=== PATIENT | female | born 1985 | race Caucasian/White ===

== ENCOUNTER 2019-07-20 17:39 | Emergency (ER) | payer OTHER ==
[2019-07-20 18:03] VITALS: BP 120/79; PULSE 71; TEMP 98.1; BMI 23.3
--- NOTE | 2019-07-20 18:03 | PDOC ---
Rapid Medical Evaluation Time Seen by Provider: 07/20/19 18:00 Medical Evaluation: Allergies Allergy/AdvReac Type Severity Reaction Status Date / Time No Known Allergies Allergy Verified 08/31/14 09:24 07/20/19 18:01 HPI: Lower back pain x 3 months but worse today PE:No gross deficits ORDERS: Nothing Discharge Disposition - Diagnosis Lower back pain - Referrals - Patient Instructions - Post Discharge Activity
[2019-07-20] MEDS ORDERED: KETOROLAC TROMETHAMINE 30 MG/1 ML VIAL IM ONE (18:30)
--- NOTE | 2019-07-20 18:30 | PDOC ---
History of Present Illness - General Chief Complaint: Back Pain Stated Complaint: BACK PAIN Time Seen by Provider: 07/20/19 18:00 History Source: Patient - History of Present Illness Initial Comments: 07/20/19 19:01 Chief complaint: Back pain Patient is a healthy 33-year-old female who states that 3 months ago she had some lower back pain, saw her doctor, got better and in the last 2 days it's come back. Patient states she took Motrin this morning but not helping. Patient denies any numbness, dysuria, incontinence or saddle anesthesia. Patient otherwise feels well, no fever. Pain is worse with movement. GENERAL/CONSTITUTIONAL: No fever, weakness. dizziness HEAD, EYES, EARS, NOSE AND THROAT: No change in vision. No ear pain or discharge. No sore throat. CARDIOVASCULAR: No chest pain RESPIRATORY: No shortness of breath or cough GASTROINTESTINAL: No pain, nausea, vomiting, diarrhea or constipation GENITOURINARY: No dysuria MUSCULOSKELETAL: No neck +back pain SKIN: No rash NEUROLOGIC: No headache, vertigo, loss of consciousness, or loss of sensation. GENERAL: The patient is awake, alert, and fully oriented, in no acute distress. HEAD: Normal with no signs of trauma. EYES: Pupils equal, round and reactive to light, sclera anicteric, conjunctiva clear. ENT: pharynx: no erythema, no exudate, uvula midline NECK: supple CHEST: clear, nontender, rr ABD: soft, nontender BACK: + Sacral tenderness, no signs of injury, no CVAT EXTREMITIES: Normal range of motion, no edema. NEUROLOGICAL: Normal speech, normal gait. Cranial nerves II through XII grossly intact, no gross focal abnormalities SKIN: Warm, Dry Past History - Past Medical History Allergies/Adverse Reactions: Allergies Allergy/AdvReac Type Severity Reaction Status Date / Time No Known Allergies Allergy Verified 07/20/19 18:01 Home Medications: Ambulatory Orders Meloxicam [Mobic] 15 mg PO DAILY #14 tablet 07/20/19 Tramadol HCl 50 mg PO Q4H PRN #20 tablet MDD 6 07/20/19 - Suicide/Smoking/Psychosocial Hx Smoking History: Never smoked Have you smoked in the past 12 months: No Hx Alcohol Use: No Drug/Substance Use Hx: No *Physical Exam - Vital Signs Last Vital Signs Temp Pulse Resp BP Pulse Ox 98.1 F 71 18 120/79 100 07/20/19 18:01 07/20/19 18:01 07/20/19 18:01 07/20/19 18:01 07/20/19 18:01 Medical Decision Making - Medical Decision Making 07/20/19 19:03 Healthy 33-year-old female, one to 2 days of lower back pain similar to what she had 3 months ago. Patient took Motrin this morning without any relief. Patient denies any numbness, dysuria, incontinence or saddle anesthesia. Patient is ambulatory. No signs of other clinical concerns. she will get Toradol and Flexeril pt still having pain, patient does not want to stay any longer, discussed medication options with patient, will give Motrin back and will give tramadol for breakthrough pain Discussed issues, findings, results, applicable medications and treatments and follow-up. All these were understood and all questions were answered 07/20/19 19:40 *DC/Admit/Observation/Transfer Diagnosis at time of Disposition: Lower back pain Qualifiers: Chronicity: unspecified Back pain laterality: bilateral Sciatica presence: without sciatica Qualified Code(s): M54.5 - Low back pain - Discharge Dispostion Disposition: HOME Condition at time of disposition: Stable Decision to Admit order: No - Prescriptions Prescriptions: Meloxicam [Mobic] 15 mg PO DAILY #14 tablet Tramadol HCl 50 mg PO Q4H PRN #20 tablet MDD 6 PRN Reason: Back Pain - Referrals Referrals: Jus Lilly MD [Staff Physician] - - Patient Instructions Printed Discharge Instructions: DI for Low Back Pain Additional Instructions: No heavy lifting or bending Apply ice to the area 20 minutes every 2 hours for the next 2 days Take Mobic once daily and take tramadol 1 tablet every 4-6 hours as needed for worse pain, this may make you sleepy Return to the nearest ER if numbness, weakness, severe pain, problems with urinating or having bowel movements. Call orthopedist today for an appointment for further evaluation - Post Discharge Activity
[2019-07-20] MEDS ORDERED: KETOROLAC TROMETHAMINE 30 MG/1 ML VIAL ONE (18:55)
== END 2019-07-20 19:57 | disposition home or self-care (01) ==
LOC: JERFT 17:39
DX: M54.5 Low back pain (principal)
CPT/HCPCS: 99282-25

== ENCOUNTER 2021-08-28 06:25 | Inpatient (IN) | payer OTHER ==
[2021-08-28] MEDS ORDERED: BETAMET ACET/BETAMET NA PH 30 MG/5 ML VIAL IM ONE (07:38)
[2021-08-28 07:48] VITALS: BMI 31.2
[2021-08-28] MEDS ORDERED: morphine SULFATE (PF) 1 MG/2 ML SYRINGE ONE (07:52)
[2021-08-28] MEDS ORDERED: ONDANSETRON 4 MG/2 ML VIAL ONE (07:55)
[2021-08-28] MEDS ORDERED: OXYTOCIN 10 UNIT/ML 10ML MDV ONE (07:55)
[2021-08-28] MEDS ORDERED: KETOROLAC TROMETHAMINE 30 MG/1 ML VIAL ONE (07:55)
[2021-08-28] MEDS ORDERED: ceFAZolin SODIUM 1 GM VIAL ONE (07:55)
[2021-08-28] MEDS ORDERED: PHENYLEPHRINE HCL 10 MG/1 ML SINGLE DOSE VIAL ONE (07:55)
[2021-08-28] MEDS ORDERED: ePHEDrine SULFATE 50 MG/1 ML AMPULE ONE (08:28)
[2021-08-28 09:51] LABS: CORD HCO3 16.8 mmHg (20-29); CORD PCO2 73.8 mmHg (30-78)
[2021-08-28 09:54] LABS: CORD BASE EXCESS -13.7 mmol/L (0-2); CORD HCO3 17.1 mmHg (20-29); CORD PCO2 58.5 mmHg (30-78); CORD pH 7.083 (7.14-7.44)
[2021-08-28 09:56] LABS: CORD HCO3 18.9 mmHg (20-29); CORD pH 7.178 (7.14-7.44)
[2021-08-28 10:10] LABS: CORD pH 6.974 (7.14-7.44)
[2021-08-28] MEDS ORDERED: METHYLERGONOVINE MALEATE 0.2 MG/1 ML AMP IM PRN (10:22)
[2021-08-28] MEDS ORDERED: ONDANSETRON 4 MG/2 ML VIAL IVPUSH PRN (10:32)
[2021-08-28] MEDS ORDERED: morphine SULFATE/PF 1 MG/2 ML (2cc Syringe - QUVA) SPIN ONE (10:32)
[2021-08-28] MEDS ORDERED: ACETAMINOPHEN 1000 MG/100 ML VIAL IVPB ONE (10:34)
[2021-08-28] MEDS ORDERED: OXYTOCIN 20 UNITS in 0.9% NS 20 UNIT/1,000 ML INFUS.BAG IV ONE (11:23)
[2021-08-28] MEDS ORDERED: ACETAMINOPHEN INJECTION 100 ML IVPB ONE (11:23)
[2021-08-28] MEDS: oxyCODONE HCL 5 MG TABLET PO SCH ×4 (11:30→23:04)
[2021-08-28] MEDS: OXYTOCIN 20 UNITS in 0.9% NS 20 UNIT/1,000 ML INFUS.BAG IV SCH (11:34)
[2021-08-28] MEDS: IBUPROFEN 600 MG TABLET (FP) PO SCH ×3 (12:48→23:03)
[2021-08-29] MEDS: OXYTOCIN 20 UNITS in 0.9% NS 20 UNIT/1,000 ML INFUS.BAG IV SCH (00:59)
[2021-08-29] MEDS: oxyCODONE HCL 5 MG TABLET PO SCH ×2 (03:36→08:48)
[2021-08-29] MEDS: IBUPROFEN 600 MG TABLET (FP) PO SCH (05:42)
[2021-08-29 08:43] LABS: BASO % 0.2 % (0-2.0); HEMATOCRIT 36.6 % (32.4-45.2); HEMOGLOBIN 12.3 GM/dL (10.7-15.3); LYMPH % 13.2 % (8-40); MCH 31.7 pg (25.7-33.7); MCHC 33.5 g/dl (32.0-36.0); MEAN CELL VOLUME 94.9 fl (80-96); MEAN PLT VOLUME 8.3 fl (7.5-11.1); MONO % 8.2 % (3.8-10.2); NEUT % 78.4 % (42.8-82.8); PLATELET COUNT 187 10^3/uL (134-434); RBC 3.86 M/mm3 (3.60-5.2); RDW 14.2 % (11.6-15.6)
[2021-08-29] MEDS: SIMETHICONE 80 MG TAB.CHEW (FP) PO PRN (08:48)
[2021-08-29] MEDS ORDERED: BISACODYL 10 MG SUPP.RECT RC PRN (10:22)
[2021-08-29] MEDS ORDERED: oxyCODONE HCL 5 MG TABLET PO PRN (10:39)
[2021-08-29] MEDS: IBUPROFEN 600 MG TABLET (FP) PO PRN ×2 (12:30→19:08)
[2021-08-30] MEDS: IBUPROFEN 600 MG TABLET (FP) PO PRN ×4 (00:21→21:40)
[2021-08-30] MEDS: SIMETHICONE 80 MG TAB.CHEW (FP) PO PRN ×3 (00:21→15:38)
[2021-08-31] MEDS: IBUPROFEN 600 MG TABLET (FP) PO PRN ×3 (05:41→19:35)
[2021-08-31 07:18] LABS: BASO % 0.3 % (0-2.0); EOS % 0.5 % (0-4.5); HEMATOCRIT 36.6 % (32.4-45.2); HEMOGLOBIN 12.6 GM/dL (10.7-15.3); LYMPH % 22.5 % (8-40); MCH 32.5 pg (25.7-33.7); MCHC 34.4 g/dl (32.0-36.0); MEAN CELL VOLUME 94.4 fl (80-96); MEAN PLT VOLUME 7.6 fl (7.5-11.1); MONO % 7.7 % (3.8-10.2); PLATELET COUNT 216 10^3/uL (134-434); RBC 3.87 M/mm3 (3.60-5.2); RDW 14.2 % (11.6-15.6); WHITE BLOOD COUNT 10.7 K/mm3 (4.0-10.0)
[2021-08-31] MEDS: SIMETHICONE 80 MG TAB.CHEW (FP) PO PRN (19:35)
[2021-09-01 10:03] VITALS: BP 118/90; PULSE 110; TEMP 98.7
== END 2021-09-01 13:00 | disposition home or self-care (01) | DRG 540 ==
LOC: JLDR 06:25 → J3W 12:07
PROVIDERS: ADMIT Obstetrics & Gynecology Maternal & Fetal Medicine; ATTEND Obstetrics & Gynecology Maternal & Fetal Medicine
PROC: 10D00Z1 Extraction of Products of Conception, Low, Open Approach (ICD-10-PCS; principal; 2021-08-28)
PROC: 0UL70ZZ Occlusion of Bilateral Fallopian Tubes, Open Approach (ICD-10-PCS; 2021-08-28)
DX: O30.033 Twin pregnancy, monochorionic/diamniotic, third trimester (principal); O36.5932 Maternal care for other known or suspected poor fetal growth, third trimester, fetus 2; O24.429 Gestational diabetes mellitus in childbirth, unspecified control; O13.4 Gestational [pregnancy-induced] hypertension without significant proteinuria, complicating childbirth; O34.219 Maternal care for unspecified type scar from previous cesarean delivery; Z3A.36 36 weeks gestation of pregnancy; Z37.2 Twins, both liveborn; Z30.2 Encounter for sterilization
CPT/HCPCS: 36415; 36600; 59025; 80048; 82803; 85025; 85610; 85730; 86780; 86850; 86900; 86901; 87389; 88302-TC; 88304-TC; 88307-TC; 96372; C9803; J0131; U0003; U0005

== ENCOUNTER 2021-12-23 18:47 | Emergency (ER) | payer OTHER ==
[2021-12-23 19:01] VITALS: TEMP 97.9; BMI 25.0
[2021-12-23] MEDS ORDERED: ONDANSETRON 4 MG/2 ML VIAL IVPB ONE (20:12)
[2021-12-23] MEDS ORDERED: FAMOTIDINE 20 MG/50 ML IVPB 20 MG/50 ML MG IVPB ONE ×2 (20:12→20:28)
[2021-12-23] MEDS ORDERED: SODIUM CHLORIDE 0.9% 500 ML INFUS.BAG IV ONE (20:12)
[2021-12-23] MEDS ORDERED: ACETAMINOPHEN 1000 MG/100 ML BAG IVPB ONE (20:12)
[2021-12-23] MEDS ORDERED: MAG HYDROX/AL HYDROX/SIMETH 30 ML UNIT-DOSE CUP PO ONE (20:12)
[2021-12-23] MEDS ORDERED: ACETAMINOPHEN 500 MG TABLET (FP) PO ONE ×2 (20:19→20:20)
[2021-12-23] MEDS ORDERED: ACETAMINOPHEN 325 MG TABLET (FP) ONE (20:28)
[2021-12-23] MEDS ORDERED: ONDANSETRON 4 MG/2 ML VIAL ONE (20:28)
[2021-12-23] MEDS ORDERED: MAG HYDROX/AL HYDROX/SIMETH 30 ML UNIT-DOSE CUP ONE (20:28)
[2021-12-23 21:10] LABS: BASO % 0.6 % (0-2.0); EOS % 1.2 % (0-4.5); HEMOGLOBIN 13.9 GM/dL (10.7-15.3); LYMPH % 20.3 % (8-40); MCH 30.6 pg (25.7-33.7); MEAN CELL VOLUME 89.9 fl (80-96); MEAN PLT VOLUME 7.6 fl (7.5-11.1); MONO % 7.6 % (3.8-10.2); NEUT % 70.3 % (42.8-82.8); PLATELET COUNT 246 10^3/uL (134-434); RBC 4.56 M/mm3 (3.60-5.2); RDW 14.3 % (11.6-15.6)
[2021-12-23 21:13] LABS: EPI CELLS 2 /uL (0-25.1); HYALINE CASTS 0 /uL (0-3.1); PH,URINE 7.5 (5.0-8.0); URINE APPEARANCE CLEAR; URINE BACTERIA 0 /uL (0-1359); URINE BILIRUBIN NEGATIVE (NEGATIVE); URINE COLOR YELLOW; URINE GLUCOSE (UA) NEGATIVE (NEGATIVE); URINE KETONE 1+ (NEGATIVE); URINE LEUK ESTERASE NEGATIVE (NEGATIVE); URINE NITRITE NEGATIVE (NEGATIVE); URINE PROTEIN NEGATIVE (NEGATIVE); URINE RBC 491 /uL (0-23.9); URINE UROBILINOGEN 0.2 mg/dL (0.2-1.0); URINE WBC 4 /uL (0-25.8)
[2021-12-23 21:17] LABS: ALBUMIN 4.3 g/dl (3.4-5.0); BLOOD UREA NITROGEN 13.3 mg/dL (7-18); CALCIUM 8.8 mg/dL (8.5-10.1)
[2021-12-23 21:21] LABS: CREATININE 0.8 mg/dL (0.55-1.3)
[2021-12-23 21:22] LABS: BILIRUBIN,TOTAL 0.5 mg/dL (0.2-1); TOT PROT 7.8 g/dl (6.4-8.2)
[2021-12-23 22:27] VITALS: BP 132/82; PULSE 63
== END 2021-12-23 22:29 | disposition home or self-care (01) ==
LOC: JER 18:47
PROC: 3E0233Z Introduction of Anti-inflammatory into Muscle, Percutaneous Approach (ICD-10-PCS; principal; 2021-12-23)
DX: M25.572 Pain in left ankle and joints of left foot (principal); R22.42 Localized swelling, mass and lump, left lower limb
CPT/HCPCS: 36415; 76705-TC; 80053; 81003; 83690; 84703; 85025; 87077; 87086; 99284-25